=== PATIENT | female | born 1935 | race Caucasian/White ===

== ENCOUNTER 2021-01-31 14:45 | Emergency (ER) | payer MEDICARE, SELFPAY ==
[2021-01-31 14:46] VITALS: BP 147/111; PULSE 75; RESP 19; TEMP 36.9; O2SAT 96; BMI 25.0
--- NOTE | 2021-01-31 14:57 | CTR_ITS ---
PROCEDURE INFORMATION: Exam: CT Head Without Contrast Exam date and time: 01/31/2021 2:57 PM Age: 85 years old Clinical indication: Injury or trauma; Fall; Blunt trauma (contusions or hematomas); Additional info: Fall knot on left eye TECHNIQUE: Imaging protocol: Computed tomography of the head without contrast. Radiation optimization: All CT scans at this facility use at least one of these dose optimization techniques: automated exposure control; mA and/or kV adjustment per patient size (includes targeted exams where dose is matched to clinical indication); or iterative reconstruction. COMPARISON: No relevant prior studies available. 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 Mild atrophy and mild to moderate white matter chronic microvascular changes are noted. No hemorrhage or evidence of acute infarction. Cerebral ventricles: No ventriculomegaly. Paranasal sinuses: Visualized sinuses are unremarkable. No fluid levels. Mastoid air cells: Visualized mastoid air cells are well aerated. Bones/joints: Unremarkable. No acute fracture. Soft tissues: Left periorbital soft tissue swelling is appreciated CT/CT head wo con* [id number] IMPRESSION: No acute intracranial abnormality. Radiation Dose CTDIVOL = (mGy): DLP = 876.75 (mGy-cm)
--- NOTE | 2021-01-31 14:57 | CTR_ITS ---
PROCEDURE INFORMATION: Exam: CT Maxillofacial Without Contrast Exam date and time: 01/31/2021 2:57 PM Age: 85 years old Clinical indication: Injury or trauma; Fall; Blunt trauma (contusions or hematomas); Forehead and orbit/periorbital; Left TECHNIQUE: Imaging protocol: Computed tomography images of the face without contrast. Radiation optimization: All CT scans at this facility use at least one of these dose optimization techniques: automated exposure control; mA and/or kV adjustment per patient size (includes targeted exams where dose is matched to clinical indication); or iterative reconstruction. COMPARISON: CT head wo con* [id number] 01/31/2021 3:06 PM RADIATION DOSE METRICS: Total DLP (mGy-cm): 714.01 FINDINGS: Orbital cavity: Orbits are normal. Globes are unremarkable. Bones/joints: No facial bone fracture is seen. Moderate bilateral TMJ degenerative changes are noted. No dislocation. Paranasal sinuses: Normal. No air-fluid levels. Soft tissues: Left periorbital soft tissue swelling is noted. CT/CT facial bones wo con* [id number] IMPRESSION: No facial bone fracture. Radiation Dose CTDIVOL = (mGy): DLP = 714.01 (mGy-cm)
--- NOTE | 2021-01-31 15:10 | W.ED.GENADLT ---
HPI - General Adult General: Chief complaint: Head Injury Stated complaint: FALL , HEMATOMA, TAKES ASP. DAILY Time Seen by Provider: 01/31/21 14:50 History of Present Illness: HPI narrative: Patient is an 85-year-old female with a history of CAD s/p AICD on aspirin presented to the emergency room after an episode of mechanical fall. Patient was walking outside of a store when she missed a step off and fell onto her right face. Patient has right facial hematoma with mild bruising. Patient denies any anticoagulation she is denies any pain elsewhere. Patient denies any LOC. EMS was alerted and patient was brought to the emergency room for evaluation. No associated chest pain, shortness breath, palpitation or lightheadedness before the episode of fall. Onset:30 minutes ago Duration:30 minutes Location:home Severity: moderate Review of Systems Narrative: Constitutional: No fever, no chills. HEENT: No vision changes, +L facial swelling and pain CV: No chest pain, no palpitations PULM: no cough, no dyspnea. GI: No abdominal pain, no N/V/D. : No dysuria MSKEL: No muscle pain SKIN: No new rashes, no lesions. NEURO: No headache, no focal weakness. HEME: No visible bruises PSYCH: Normal mood Physical Exam Narrative: EXAM NARRATIVE: Head: Atraumatic Eyes: PERRL, conjunctiva without injection ENT: Mucous membrane moist, +L maxillary bone tenderness to palpation NECK: Supple, ROM intact LUNGS: LCTAB, no crackles/rhonchi CV: RRR ABDOMEN: Soft, nontender in all quadrants EXTREMITY: Normal ROM SKIN: +L facial V2 swelling and hematoma NEURO: Awake and alert, no focal motor deficits PSYCH: Normal mood and affect Course Vital Signs: Vital signs: Vital Signs Temperature 98.5 F 01/31/21 14:46 Pulse Rate 67 01/31/21 16:57 Respiratory Rate 18 01/31/21 16:57 Blood Pressure 162/87 01/31/21 16:57 Pulse Oximetry 95 01/31/21 16:57 MDM - General Adult MDM Narrative: Medical decision making narrative: 85-year-old female with a history of CAD s/p AICD presenting to the emergency room for concerns of an episode of mechanical fall. On exam, patient has some left facial hematoma tenderness to palpation. No other focal areas of tenderness palpation no signs of visible trauma Work-up including CT face, CT brain Intervention: Tylenol On reassessment, imaging were negative for fracture. At the present time, patient feels symptomatically improved. Given patient concussion precautions. Rx tylenol PRN pain Disposition: Discharge. Patient counseled regarding diagnostic impression, treatment plan. Patient given ED strict return precautions to return for continuation, worsening, or development of new symptoms. Instructed to f/u w/ PCP regarding symptoms today. Patient verbalized understanding. Imaging Data^: Other Imaging: Radiologist's impression: [facility] [id number] Scan ReportSigned Patient: Maria Esther Garsia #: [id number]: [id number]#:[id number]/Sex: 85 / FADM Date: 01/31/21Loc: ERRoom/Bed:Attending Dr: Ordering Provider/Ordering MD: Marlo Morgan MD Date of Service: 01/31/21 Procedure(s): CT head wo con* [id number] Accession Number(s): [id number] Report Number: [id number] PROCEDURE INFORMATION: Exam: CT Head Without Contrast Exam date and time: 01/31/2021 2:57 PM Age: 85 years old Clinical indication: Injury or trauma; Fall; Blunt trauma (contusions or hematomas); Additional info: Fall knot on left eye TECHNIQUE: Imaging protocol: Computed tomography of the head without contrast. Radiation optimization: All CT scans at this facility use at least one of these dose optimization techniques: automated exposure control; mA and/or kV adjustment per patient size (includes targeted exams where dose is matched to clinical indication); or iterative reconstruction. COMPARISON: No relevant prior studies available. 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 Mild atrophy and mild to moderate white matter chronic microvascular changes are noted. No hemorrhage or evidence of acute infarction. Cerebral ventricles: No ventriculomegaly. Paranasal sinuses: Visualized sinuses are unremarkable. No fluid levels. Mastoid air cells: Visualized mastoid air cells are well aerated. Bones/joints: Unremarkable. No acute fracture. Soft tissues: Left periorbital soft tissue swelling is appreciated CT/CT head wo con* [id number] IMPRESSION: No acute intracranial abnormality. Radiation Dose CTDIVOL = (mGy): DLP = 876.75 (mGy-cm) Dictated By:Obed Petty MDSigned By:Obed Petty MDSigned Date/Time:01/31/21 1532DD/ 1457 [facility] [place], [place] [address]ZX Scan ReportSigned Patient: Maria Esther Garsia #: [id number]: [id number]#:[id number]/Sex: 85 / FADM Date: 01/31/21Loc: ERRoom/Bed:Attending Dr: Ordering Provider/Ordering MD: Marlo Morgan MD Date of Service: 01/31/21 Procedure(s): CT facial bones wo con* [id number] Accession Number(s): [id number] Report Number: [id number] PROCEDURE INFORMATION: Exam: CT Maxillofacial Without Contrast Exam date and time: 01/31/2021 2:57 PM Age: 85 years old Clinical indication: Injury or trauma; Fall; Blunt trauma (contusions or hematomas); Forehead and orbit/periorbital; Left TECHNIQUE: Imaging protocol: Computed tomography images of the face without contrast. Radiation optimization: All CT scans at this facility use at least one of these dose optimization techniques: automated exposure control; mA and/or kV adjustment per patient size (includes targeted exams where dose is matched to clinical indication); or iterative reconstruction. COMPARISON: CT head wo con* [id number] 01/31/2021 3:06 PM RADIATION DOSE METRICS: Total DLP (mGy-cm): 714.01 FINDINGS: Orbital cavity: Orbits are normal. Globes are unremarkable. Bones/joints: No facial bone fracture is seen. Moderate bilateral TMJ degenerative changes are noted. No dislocation. Paranasal sinuses: Normal. No air-fluid levels. Soft tissues: Left periorbital soft tissue swelling is noted. CT/CT facial bones wo con* [id number] IMPRESSION: No facial bone fracture. Radiation Dose CTDIVOL = (mGy): DLP = 714.01 (mGy-cm) Dictated By:Obed Petty MDSigned By:Obed Petty MDSigned Date/Time:01/31/21 1547DD/ 1457 Discharge Plan Discharge Patient Disposition: Home Clinical Impression: Hematoma of face, Concussion Condition: Stable Prescriptions: New acetaminophen 500 mg tablet 500 mg PO Q6H PRN (Reason: pain) 5 Days Qty: 20 RF: 0 Discharge Orders: Discharge ED (Routine); Ordered 01/31/21 Ordered By: Marlo Morgan Discharge Diet: Advance as tolerated Discharge Activity: Resume usual activity Patient Instructions: Concussion (ED), Opioid Safety Coding Level of Care Code ED Learning Disabilities Specialist for Bib Garvey
[2021-01-31] MEDS: acetaminophen 500 mg Tablet 1000 MG PO (15:22)
[2021-01-31] MEDS: tetanus-dipt-pertussis 0.5 mL SDV IM (15:22)
[2021-01-31 16:57] VITALS: BP 162/87; PULSE 67; RESP 18; O2SAT 95
== END 2021-01-31 16:27 | disposition home or self-care (01) ==
PROVIDERS: Emergency Provider Emergency Medicine
DX: S00.83XA Contusion of other part of head, initial encounter (principal); S06.0X9A Concussion with loss of consciousness of unspecified duration, initial encounter; I25.10 Atherosclerotic heart disease of native coronary artery without angina pectoris; W19.XXXA Unspecified fall, initial encounter; Z23 Encounter for immunization
CPT/HCPCS: 70450; 70486; 90715; 99283